=== PATIENT | male | born 1990 | race African-American/Black ===

== ENCOUNTER 2019-03-04 10:32 | Emergency (ER) | payer OTHER ==
[2019-03-04 11:19] LABS: RAPID STREP SCREEN POSITIVE (Negative)
--- NOTE | 2019-03-04 11:36 | ED Physician Documentation ---
PD HPI URI - Stated complaint Stated Complaint: THROAT PX - Chief complaint Chief Complaint: Heent - History obtained from History obtained from: Patient - History of Present Illness Timing - onset: Yesterday Timing duration: Days (1-2) Timing details: Abrupt onset, Still present Associated symptoms: Fever, Sore throat, Swollen nodes. No: Nasal congestion, Sinus pain, Dry cough, NVD Similar symptoms before: Diagnosis (strep tonsillitis.) Recently seen: Not recently seen Review of Systems Constitutional: reports: Fever, Chills, Myalgias Nose: denies: Rhinorrhea / runny nose, Congestion Throat: reports: Sore throat Cardiac: denies: Chest pain / pressure Respiratory: denies: Cough PD PAST MEDICAL HISTORY - Past Medical History Cardiovascular: None Respiratory: None Neuro: None Endocrine/Autoimmune: None GI: None : None HEENT: None Psych: None Musculoskeletal: None Derm: None - Past Surgical History Past Surgical History: Yes Ortho: Spine surgery - Present Medications Home Medications: Ambulatory Orders Medication Instructions Recorded Confirmed Amoxicillin 500 mg PO TID #21 capsule 03/04/19 dexAMETHasone [Decadron] 4 mg PO DAILY #5 tablet 03/04/19 - Social History Does the pt smoke?: Yes Smoking Status: Current some day smoker Does the pt drink ETOH?: Yes ETOH Use: Liquor - Immunizations Immunizations are current?: Yes PD ED PE NORMAL - Vitals Vital signs reviewed: Yes - General General: Alert and oriented X 3, No acute distress, Well developed/nourished - HEENT HEENT: Ears normal, Moist mucous membranes. No: Pharynx benign (redness with exudate posteriorly. No peritonsillar swelling. ) - Derm Derm: Normal color, Warm and dry - Neuro Neuro: Alert and oriented X 3, No motor deficit, Normal speech Results - Vitals Vitals: Vital Signs - 24 hr 03/04/19 03/04/19 10:51 12:14 Temperature 37.1 C 37.3 C Heart Rate 92 91 Respiratory 18 16 Rate Blood Pressure 121/66 112/70 O2 Saturation 99 99 Oxygen O2 Source Room air - Labs Labs: Laboratory Tests 03/04/19 10:53 Group A Strep Rapid POSITIVE H PD MEDICAL DECISION MAKING - ED course Complexity details: considered differential (seems like strep throat.), d/w patient Departure - Departure Disposition: Home, Self Care Clinical Impression: Acute streptococcal pharyngitis Condition: Stable Record reviewed to determine appropriate education?: Yes Instructions: ED Strep Pharyngitis Conf Follow-Up: Xavi Germain II, PA-C [Primary Care Provider] - Prescriptions: Amoxicillin 500 mg PO TID #21 capsule dexAMETHasone [Decadron] 4 mg PO DAILY #5 tablet Comments: Stay well-hydrated. Tylenol or ibuprofen if needed for fevers or pains. Decadron and amoxicillin for the acute infection. Off work today and possibly tomorrow due to the illness. Forms: Activity restrictions Discharge Date/Time: 03/04/19 12:23
[2019-03-04] MEDS ORDERED: CHERRY SYRUP 10 ML UDC PO ONE (11:49)
[2019-03-04] MEDS ORDERED: DEXAMETHASONE 10 MG/ML VIAL PO STA (11:49)
[2019-03-04] MEDS ORDERED: AMOXICILLIN 250 MG CAPSULE PO STA (11:49)
[2019-03-04] MEDS ORDERED: ACETAMINOPHEN 325 MG TABLET PO STA (11:49)
[2019-03-04 12:35] VITALS: BP 112/70
== END 2019-03-04 12:23 | disposition home or self-care (01) ==
LOC: ED 10:32
DX: J02.0 Streptococcal pharyngitis (principal); F17.200 Nicotine dependence, unspecified, uncomplicated
CPT/HCPCS: 87430; 99283; A9270

== ENCOUNTER 2019-03-08 11:06 | Outpatient (CLI) | payer OTHER ==
--- NOTE | 2019-03-08 13:51 | SLEEP CARE CONSULTATION ---
Information from patient questionnaire entered by Pau Palacio. I have reviewed and concur with the information entered by Pau Palacio. This document represents the service I personally performed and the decisions made by me, Theresa Shaw MD, [facility]. History of Present Illness Reason for Visit: New patient Chief Complaint: reports: Snoring, Excessive daytime sleepiness, Frequent awakenings at night Duration of Symptoms: 2 years Usual bedtime: 5931-2212 Time it takes to fall asleep: unsure Snores at night: Yes (sometimes) Observed to quit breathing while asleep: No Sleeps alone due to snoring: No Number of times waking at night: 1-2 Toss, Turn, or Twitch while sleeping: Yes Recalls having dreams: No Usually gets out of bed at: 0545 Feels refreshed in the morning: No Morning headache: No Sleepy or fatigued during the day: Yes Ever fallen asleep while driving: No Takes day naps: No Dreams during day naps: No Prior sleep studies: No Additional HPI information: I had the pleasure of seeing Mr. Villanueva today regarding the possibility of him having a sleep disorder. As you know, he is a 29 year old gentleman who complains of unrefreshed sleep, persistent fatigue, and excessive daytime sleepiness for the past 2 years. The patient tells me that he normally goes to bed around 10 - 11 pm, and it takes him approximately just a few minutes to fall asleep. He has been told that he snores loudly and irregularly at night. He has never been observed to stop breathing in his sleep. He usually sleeps alone. He can recall waking up on the average of 1 - 2 times during the night. Most of the time he wakes up because of no apparent reason. He has awakened occasionally because of his own snoring, choking, and having to gasp for air. There is a lot of tossing and turning in his sleep. No somniloquy (sleep talking) or somnambulism (sleep walking). Generally there is no recollection of dreams. In the morning he usually gets up out of the bed around 5:45 a.m. not feeling refreshed nor rested. He usually does not have a morning headache. During the day he complains of feeling sleepy and fatigued. His score on [place] Sleepiness Scale is 13 out of 24. He has fallen asleep while driving and has gone out of the beti. He usually does not take naps during the day. Upon falling asleep during the day he denies having vivid dreams. He has never had sleep paralysis, experienced cataplexy or symptoms of restless leg syndrome. He denies having impaired concentration during the day. Subjective Initial [place] Sleepiness Scale score: 13 Social History The patient's occupation is active . Patient is Single and lives in [place]. Have you smoked in the past 12 months: No Alcohol use: Yes Alcohol amount and frequency: 1-2 weekly Caffeine use: No Family History Family history of sleep disordered breathing: Yes Family Hx Sleep Apnea: Father: Snoring Allergies and Home Medications Drug allergies reviewed: Yes Home medication list reviewed: Yes Review of Systems Weight gain over past 5 years: 26 Cardiovascular: denies: high blood pressure, palpitations, chest pain, irregular heart rate or pulse, leg or foot swelling, have to sleep sitting up, other Respiratory: denies: shortness of breath, wheeze, sputum production, chronic cough, other Gastrointestinal: denies: heartburn, difficulty swallowing, nausea, vomitting, diarrhea, abdominal pain, other Urinary: denies: incontinence, frequency, urgency, impotence, other Neurological: denies: headaches, seizure, head trauma, disorientation, speech dysfunction, gait or balance problems, fainting or unconsciousness, other Psychiatric: denies: Attention Deficit Hyperactivity, anxiety, depression, mood disorder, claustrophobia, other Ear/Nose/Throat: reports: wisdom teeth removed Endocrine: denies: thyroid disease, history of goiter, sluggishness, too hot or cold, excessive thirst, increased appetite, increased urination, unexplained weakness, other Musculoskeletal: reports: neck pain, back pain Immunologic: denies: sneezing, rash, itching, allergies to food or environment, other Physical Exam Vital signs obtained and entered by: Dr. Shaw Blood Pressure: 123/72 Cuff size: regular Heart Rate: 72 O2 Saturation: 98 Height: 5 ft 7 in Weight: 168 lb Body Mass Index: 26.3 BMI Classification: Overweight Neck circumference: 15.5 Mood/affect: Normal HEENT: No craniofacial malformation Nostrils: patent to airflow Turbinates: normal Septum: midline Mouth and throat: narrow oropharynx Soft palate: long Hard palate: normal Uvula: normal Uvula visualization: 50% Mallampati Class II Tongue: normal in size Tonsils: small Chin and jaw: normal size and position Neck: normal w/o lymphadenopathy or thyromegaly Heart: regular rate and rhythm Lungs: clear bilaterally Abdomen: soft, non-tender Extremities: no edema or clubbing Neurologic: intact, no focal deficits Impression and Plan IMPRESSION: 1. Suspected Obstructive Sleep Apnea-Hypopnea Syndrome, as suggested by history of loud snoring, nocturnal choking, unrefreshed sleep, cognitive impairment, and daytime hypersomnolence. Narrow oropharynx and obesity are common predisposing factors for obstructive sleep apnea-hypopnea syndrome. Pathophysiology of sleep-disordered breathing was discussed. I recommend proceeding to polysomnography to confirm the diagnosis and to assess severity. I informed the patient of what the sleep studies involve and after some discussion, he agreed to proceed. Plan: 1. Schedule an in-laboratory polysomnography. 2. Avoid long distance driving or when feeling sleepy. 3. Avoid alcohol, sedative and muscle relaxant around bedtime. 4. Attempt to lose some weight. 5. Return in 1 to 2 weeks after the study to discuss results and initiate therapy. I spent 100% of this visit face to face with the patient with greater than 50% of this was spent time counseling the patient and coordination of care.
[2019-03-08 13:52] VITALS: BP 123/72
== END 2019-03-08 11:07 | disposition home or self-care (01) ==
LOC: SC 11:06 → MERGE 11:40
PROVIDERS: ATTEND Internal Medicine Pulmonary Disease
DX: R06.83 Snoring (principal); G47.8 Other sleep disorders; R41.89 Other symptoms and signs involving cognitive functions and awareness; G47.10 Hypersomnia, unspecified
CPT/HCPCS: 99203; 99212

== ENCOUNTER 2019-03-10 20:42 | Outpatient (CLI) | payer OTHER | END 2019-03-10 20:43 | disposition home or self-care (01) | LOC: SC 20:42 | PROVIDERS: ATTEND Internal Medicine Pulmonary Disease | DX: R06.83 Snoring (principal); G47.8 Other sleep disorders; G47.10 Hypersomnia, unspecified | CPT/HCPCS: 95810 ==

== ENCOUNTER 2019-04-07 10:14 | Outpatient (CLI) | payer OTHER ==
[2019-04-07 11:06] VITALS: BP 110/60
--- NOTE | 2019-04-07 11:06 | SLEEP CARE CONSULTATION ---
Information from patient questionnaire entered by Miriam Huff. I have reviewed and concur with the information entered by Miriam Huff. This document represents the service I personally performed and the decisions made by me, Malaika Zuniga, RN, MSN, [facility]. History of Present Illness Initial [place] Sleepiness Scale score: 13 Current [place] Sleepiness Scale score: 9 Additional HPI information: INDIRA BORREGO returns for follow up of the recently performed polysomnography. I explained the pathophysiology behind obstructive sleep apnea. Patient does not have sleep apnea and was advised how weight gain could increase the risk of developing sleep apnea in the future. I strongly encouraged the patient to lose some weight. We looked at BMI chart and guidelines and goal is to reduce central obesity to reduce overall health risks such as cardiac disease and diabetes. Patient has mild snoring. Snoring can be reduced by weight loss. Weight loss is best achieved with diet consult. Patient instructed to contact PCP for referral. Snoring can also be treated with an oral appliance from a dentist. Advised to check insurance coverage. He is currently not interested. In addition, an ENT evaluation can be do to see if other treatment is indicated. Currently no problem breathing through nose. But snoring can disrupt sleep and contribute to sleepiness symptoms. If weight loss does not resolve snoring an ENT consultation is advised. Patient counseled not drink alcohol less than 4 hours before bedtime as it can increase snoring and apnea. Patient does not drink alcohol. Patient was cautioned about risks of drowsy driving until sleepiness symptoms resolve. Patient denies drowsy driving. [facility] patient education on snoring and sleep apnea given and reviewed. Patient sleep history He states he wakes up 1-2 times a night and is able to go back in a few minutes and wondered if normal. His usual wake time 5:45 -6am and usual bedtime is about 11pm. So he is about 6.5 to 7 hours of sleep. Allergies and Home Medications Known drug allergies: No Home medication list reviewed: No (none) Review of Systems Review of systems same as previous: Yes Physical Exam Blood Pressure: 110/60 Cuff size: regular Heart Rate: 75 O2 Saturation: 98 Height: 5 ft 7 in Weight: 173 lb Body Mass Index: 27.1 BMI Classification: Overweight Impression and Plan 1. Snoring, slight, but no significant sleep disordered breathing. Patient advised that often weight loss will reduce snoring as well as apnea risk. An oral appliance can also be used for snoring . This would require a dental consultation. Patient cautioned not to use other online appliances as can cause bite issues. Patient states he is currently not interested. An ENT consult can also be helpful to determine if any other treatment is an option if snoring not resolved by weight reduction. 2. Fatigue, most work days but rested on weekends when he obtains more sleep. During the week he is getting 6.5 to 7 hours but on weekend about 8 hours. Thus he is advised to strive for more sleep during the week by going to bed about 10- 15 minutes earlier a night until he is able to get sufficient sleep. I stressed importance of a regular wake time and how this sets his bedtime due to homestatic sleep drive and circadian rhythm. If he wants to sleep in on , only thursday and no more than an hour. If he sleeps in on Thursday , he may not be able to go to sleep early enough to get sufficient sleep and start week our tired. [facility] How to sleep Better pamphlet given and reviewed. If continued fatigue, he is to follow up with his PCP. * Attempt to lose some weight * regular sleep schedule * Obtain more sleep * Avoid alcohol consumption near bedtime * The patient is cautioned about driving until sleepiness is completely resolved. * Return as needed. Time Spent with Patient (minutes): 33 I spent 100% of this visit face to face with the patient with greater than 50% of this was spent time counseling the patient and coordination of care.
== END 2019-04-07 10:15 | disposition home or self-care (01) ==
LOC: SC 10:14
PROVIDERS: ATTEND Nurse Practitioner Family
DX: R06.83 Snoring (principal); R53.83 Other fatigue
CPT/HCPCS: 99212; 99214